=== PATIENT | male | born 1990 | race Caucasian/White ===

== ENCOUNTER 2018-04-03 13:18 | Emergency (ER) | payer BC ==
[~2018-04-03] VITALS: Ht 182.9 cm; Wt 100.9 kg
[2018-04-03 16:06] LABS: HEMATOCRIT 44.7 % (38.0-50.0); HEMOGLOBIN 15.6 G/DL (12.5-16.6); MCH 31.2 PG (29.0-34.0); MCHC 34.9 G/DL (30.0-36.0); MCV 89.4 FL (86-99); PLATELET COUNT 351 K/uL (156-360); RBC DIS.WIDTH-CV 12.4 % (11.8-14.6); RBC DIS.WIDTH-SD 40.9 % (39-53); WHITE BLOOD COUNT 9.4 K/uL (4.1-10.2)
[2018-04-03 16:16] LABS: CHLORIDE 102 mEq/L (99-109); POTASSIUM 4.8 mEq/L (3.7-5.4); SODIUM 138 mEq/L (136-147)
[2018-04-03 16:18] LABS: GLUCOSE 89 mg/dL (70-99)
[2018-04-03 16:22] LABS: GFR ESTIMATE (CALCULATED) > 59 mL/min/ (58.99-99999); UREA NITROGEN (BUN) 13 mg/dL (9-23)
[2018-04-03 16:36] LABS: SOURCE URINE
[2018-04-03 17:51] VITALS: BP 125/84
[2018-04-04 13:36] LABS: CHLAMYDIA TRACHOMATIS NEGATIVE; NEISSERIA GONORRHOEAE NEGATIVE
[2018-04-05 08:42] LABS: TREPONEMA ANTIBODY NEGATIVE (NEGATIVE)
== END 2018-04-03 17:52 | disposition home or self-care (01) ==
LOC: EME 13:18
PROVIDERS: Nurse Practitioner Family
DX: I86.1 Scrotal varices (principal); N50.3 Cyst of epididymis; R10.31 Right lower quadrant pain; F32.9 Major depressive disorder, single episode, unspecified; F41.9 Anxiety disorder, unspecified; F17.200 Nicotine dependence, unspecified, uncomplicated
CPT/HCPCS: 74176; 76870; 80048; 85027; 86780; 87491; 87591; 99281; 99284; J0696